=== PATIENT | male | born 1945 | race Asian ===

== ENCOUNTER 2017-09-25 03:35 | Emergency (ER) | payer OTHER ==
[2017-09-25 03:45] VITALS: BMI 33.5
[2017-09-25] MEDS ORDERED: ACETAMINOPHEN INJECTION 100 ML IVPB ONE (05:20)
[2017-09-25] MEDS ORDERED: SODIUM CHLORIDE 0.9% 500 ML INFUS.BAG IV ONE (05:28)
--- NOTE | 2017-09-25 05:30 | PDOC ---
History of Present Illness - General History Source: Patient, Family (Daughter) Exam Limitations: No Limitations - History of Present Illness Initial Comments: 09/25/17 06:02 The patient is a 71 year old male with a significant PMH of diabetes and HTN who presents to the emergency department with generalized weakness, dizziness, and non-productive cough for the past three days. The patient states the weakness is preventing him from getting out of bed. The patient reports he used the bathroom at 3AM this morning and fell on the ground afterwards prompting their visit to the ER. Patient states his last meal was spaghetti at 4PM yesterday and was intaking fluids normally. The patient denies taking Tylenol or Motrin. The patient denies getting a flu shot this year. The patient denies chest pain, shortness of breath, and headache. Denies chills, nausea, vomit, diarrhea and constipation. Denies dysuria, frequency, urgency and hematuria. The patient has a fever of 101 at presentation. Allergies: NKA Social history: No reported alcohol, cigarette, or drug use. PCP: Dr. Boyce <Charlene Larson - Last Filed: 09/25/17 06:02> <Janiya Crocker - Last Filed: 09/25/17 19:57> - General Chief Complaint: Weakness Stated Complaint: WEAKNESS Time Seen by Provider: 09/25/17 03:51 Past History <Charlene Larson - Last Filed: 09/25/17 06:02> - Suicide/Smoking/Psychosocial Hx Smoking History: Never smoked Have you smoked in the past 12 months: No Information on smoking cessation initiated: No Hx Alcohol Use: No Drug/Substance Use Hx: No <Janiya Crocker - Last Filed: 09/25/17 19:57> - Past Medical History Allergies/Adverse Reactions: Allergies Allergy/AdvReac Type Severity Reaction Status Date / Time No Known Allergies Allergy Verified 09/25/17 05:39 Home Medications: Ambulatory Orders Diltiazem [Cardizem -] 60 mg PO BID 09/25/17 Labetalol HCl [Normodyne -] 360 mg PO BID 09/25/17 Oseltamivir Phosphate [Tamiflu -] 75 mg PO BID #10 capsule 09/25/17 Sitagliptin Phos/Metformin HCl [Janumet 50-500 mg Tablet] 500 mg PO DAILY Review of Systems - Review of Systems Able to Perform ROS?: Yes Comments:: 09/25/17 06:04 GENERAL/CONSTITUTIONAL: (+) Generalized weakness. (+) Fever. No chills. HEAD, EYES, EARS, NOSE AND THROAT: No change in vision. No ear pain or discharge. No sore throat. CARDIOVASCULAR: No chest pain or shortness of breath. RESPIRATORY: (+) Cough. No wheezing, or hemoptysis. GASTROINTESTINAL: No nausea, vomiting, diarrhea or constipation. GENITOURINARY: No dysuria, frequency, or change in urination. MUSCULOSKELETAL: No joint or muscle swelling or pain. No neck or back pain. SKIN: No rash NEUROLOGIC: (+) Dizziness. No headache, loss of consciousness, or change in strength/sensation. ENDOCRINE: No increased thirst. No abnormal weight change. HEMATOLOGIC/LYMPHATIC: No anemia, easy bleeding, or history of blood clots. ALLERGIC/IMMUNOLOGIC: No hives or skin allergy. <Charlene Larson - Last Filed: 09/25/17 06:02> *Physical Exam - Vital Signs Last Vital Signs Temp Pulse Resp BP Pulse Ox 101.3 F H 90 18 156/90 97 09/25/17 03:43 09/25/17 03:43 09/25/17 03:43 09/25/17 03:43 09/25/17 03:43 - Physical Exam Comments: 09/25/17 06:05 GENERAL: (+) Burning up with fever. Awake, alert, and fully oriented, in no acute distress HEAD: No signs of trauma EYES: PERRLA, EOMI, sclera anicteric, conjunctiva clear ENT: (+) Dry mouth. Auricles normal inspection, hearing grossly normal, nares patent, oropharynx clear without exudates. NECK: Normal ROM, supple, no lymphadenopathy, JVD, or masses LUNGS: Breath sounds equal, clear to auscultation bilaterally. No wheezes, and no crackles HEART: Regular rate and rhythm, normal S1 and S2, no murmurs, rubs or gallops ABDOMEN: Soft, nontender, normoactive bowel sounds. No guarding, no rebound. No masses EXTREMITIES: Normal range of motion, no edema. No clubbing or cyanosis. No cords , erythema, or tenderness NEUROLOGICAL: Cranial nerves II through XII grossly intact. Normal speech, normal gait SKIN: Warm, Dry, normal turgor, no rashes or lesions noted. <Charlene Larson - Last Filed: 09/25/17 06:02> - Vital Signs Last Vital Signs Temp Pulse Resp BP Pulse Ox 101.3 F H 90 18 156/90 97 09/25/17 03:43 09/25/17 03:43 09/25/17 03:43 09/25/17 03:43 09/25/17 03:43 <Janiya Crocker - Last Filed: 09/25/17 19:57> ED Treatment Course - LABORATORY CBC & Chemistry Diagram: 09/25/17 05:19 09/25/17 05:19 - ADDITIONAL ORDERS Additional order review: 09/25/17 05:30 Influenza Types A,B Antigen (BRENT) - Preliminary Nasopharyngeal Swab - Preliminary 09/25/17 05:19 RBC 4.85 MCV 86.4 MCHC 33.4 RDW 13.9 MPV 8.5 Neutrophils % 82.4 Lymphocytes % 6.7 L Monocytes % 9.4 Eosinophils % 1.2 Basophils % 0.3 - Medications Given in the ED: ED Medications Discontinued Medications Generic Name Dose Route Start Last Admin Trade Name Freq PRN Reason Stop Dose Admin Sodium Chloride 1,000 ml 09/25/17 05:28 09/25/17 05:38 Normal Saline - IV 09/25/17 05:29 1,000 ml ONCE ONE Administration <Charlene Larson - Last Filed: 09/25/17 06:02> - LABORATORY CBC & Chemistry Diagram: 09/25/17 05:19 09/25/17 05:19 - RADIOLOGY Radiology Studies Ordered: Category Date Time Status CHEST PA & LAT [RAD] Stat Radiology 09/25/17 05:27 Ordered <Janiya Crocker - Last Filed: 09/25/17 19:57> Medical Decision Making - Medical Decision Making 09/25/17 19:57 Pt comes with fever and body aches. He has the flu. Labs otherwise normal. He appears improved with NSS and analgesics. Fever has come down and he will be sent home with tamiflu. <Janiya Crocker - Last Filed: 09/25/17 19:57> *DC/Admit/Observation/Transfer - Attestations Scribe Attestion: 09/25/17 06:07 Documentation prepared by Charlene Larson, acting as medical claims analyst for Janiya Crocker MD. <Charlene Larson - Last Filed: 09/25/17 06:02> - Discharge Dispostion Admit: No <Janiya Crocker - Last Filed: 09/25/17 19:57> Diagnosis at time of Disposition: Influenza A - Discharge Dispostion Disposition: HOME Condition at time of disposition: Improved - Prescriptions Prescriptions: Oseltamivir Phosphate [Tamiflu -] 75 mg PO BID #10 capsule - Referrals Referrals: Chaparro Boyce MD [Primary Care Provider] - - Patient Instructions Printed Discharge Instructions: Influenza - Post Discharge Activity
[2017-09-25 05:46] LABS: BASO % 0.3 % (0-2.0); EOS # 0.1 # (0-4.5); EOS % 1.2 % (0-4.5); LYMPH # 0.7 (8-40); MCH 28.9 pg (25.7-33.7); MCHC 33.4 g/dl (32.0-35.9); MEAN CELL VOLUME 86.4 fl (80-96); MEAN PLT VOLUME 8.5 fl (7.5-11.1); NEUT # 8.8 # (42.8-82.8); NEUT % 82.4 % (42.8-82.8); PLATELET COUNT 172 K/MM3 (134-434); RDW 13.9 % (11.9-15.9); WHITE BLOOD COUNT 10.7 K/mm3 (4.0-10.0)
[2017-09-25 05:52] LABS: URINE APPEARANCE CLEAR; URINE BILIRUBIN NEGATIVE (NEGATIVE); URINE BLOOD 1+ (NEGATIVE); URINE COLOR YELLOW; URINE GLUCOSE (UA) 2+ (NEGATIVE); URINE KETONE NEGATIVE (NEGATIVE); URINE LEUK ESTERASE NEGATIVE (NEGATIVE); URINE NITRITE NEGATIVE (NEGATIVE); URINE UROBILINOGEN NEGATIVE mg/dL (0.2-1.0)
[2017-09-25 06:03] LABS: INR 1.05 (0.82-1.09); PROTHROMBIN TIME (PATIENT) 11.9 SEC (9.98-11.88)
[2017-09-25 06:06] LABS: ALBUMIN 3.6 g/dl (3.4-5.0); ANION GAP 9 (8-16); BILIRUBIN,TOTAL 0.6 mg/dL (0.2-1.0); CALCIUM 8.8 mg/dL (8.5-10.1); CO2 24 mmol/L (21-32); CREATININE 1.3 mg/dL (0.7-1.3); GLUCOSE,RANDOM 171 mg/dL (74-106); SGOT/AST 26 U/L (15-37); SGPT/ALT 64 U/L (12-78); TOT PROT 7.2 g/dl (6.4-8.2)
[2017-09-25 06:09] LABS: ALK PHOS 64 U/L (45-117); CPK 229 IU/L (39-308); TROPONIN I < 0.02 ng/ml (0.00-0.05)
[2017-09-25] MEDS ORDERED: OSELTAMIVIR PHOSPHATE 75 MG CAPSULE PO ONE (06:11)
[2017-09-25 06:14] LABS: URINE PROTEIN 2+ (NEGATIVE)
[2017-09-25] MEDS ORDERED: ACETAMINOPHEN 1000 MG/100 ML VIAL (NON FORMULARY) IVPB ONE (06:15)
[2017-09-25] MEDS ORDERED: OSELTAMIVIR PHOSPHATE 75 MG CAPSULE ONE (06:16)
[2017-09-25] MEDS ORDERED: IBUPROFEN 600 MG TABLET (FP) PO ONE ×2 (06:20→06:22)
[2017-09-25 06:27] VITALS: TEMP 99.1
[2017-09-25 06:37] LABS: URINE HYALINE CAST 4 /lpf; URINE MUCUS RARE; URINE WBC 1 /hpf (3-5)
[2017-09-25 07:09] VITALS: BP 152/79; PULSE 80
[2017-09-25 14:28] LABS: URINE LEUK ESTERASE Negative (NEGATIVE)
--- NOTE | 2017-09-25 17:14 | EKG ---
Test Reason : Blood Pressure : / mmHG Vent. Rate : 084 BPM Atrial Rate : 084 BPM P-R Int : 174 ms QRS Dur : 104 ms QT Int : 364 ms P-R-T Axes : 076 061 042 degrees QTc Int : 430 ms NORMAL SINUS RHYTHM NORMAL ECG NO PREVIOUS ECGS AVAILABLE Confirmed by JOSÉ MIGUEL KIMBLE MD ([id number]) on 09/25/2017 5:13:51 PM Referred By: Confirmed By:JOSÉ MIGUEL KIMBLE MD
== END 2017-09-25 07:10 | disposition home or self-care (01) ==
LOC: JER 03:35
PROC: 3E033NZ Introduction of Analgesics, Hypnotics, Sedatives into Peripheral Vein, Percutaneous Approach (ICD-10-PCS; principal; 2017-09-25)
DX: J09.X2 Influenza due to identified novel influenza A virus with other respiratory manifestations (principal); I10 Essential (primary) hypertension; E11.9 Type 2 diabetes mellitus without complications; Z79.84 Long term (current) use of oral hypoglycemic drugs
CPT/HCPCS: 36415; 80053; 81003; 81015; 82550; 82553; 83605; 84484; 85025; 85610; 87040; 87086; 87804; 93005; 93010; 99283-25

== ENCOUNTER 2020-10-30 21:38 | Inpatient (IN) | payer OTHER ==
[2020-10-30] MEDS ORDERED: SODIUM CHLORIDE 2,449 ML IV ONE (22:24)
[2020-10-30] MEDS ORDERED: ONDANSETRON 4 MG/2 ML VIAL IVPUSH ONE (22:32)
[2020-10-30] MEDS ORDERED: ACETAMINOPHEN 1000 MG/100 ML VIAL (NON FORMULARY) IVPB ONE (22:59)
[2020-10-30] MEDS ORDERED: ONDANSETRON 4 MG/2 ML VIAL ONE (23:02)
[2020-10-30] MEDS ORDERED: ACETAMINOPHEN INJECTION 100 ML IVPB ONE (23:02)
[2020-10-30 23:03] LABS: BASO % 0.5 % (0-2.0); EOS % 0.4 % (0-4.5); HEMATOCRIT 37.9 % (35.4-49); MCH 30.2 pg (25.7-33.7); MCHC 34.3 g/dl (32.0-35.9); MEAN PLT VOLUME 8.2 fl (7.5-11.1); MONO % 8.1 % (3.8-10.2); PLATELET COUNT 145 K/MM3 (134-434); RDW 13.6 % (11.9-15.9)
[2020-10-30 23:12] LABS: INR 1.07 (0.83-1.09); PROTHROMBIN TIME (PATIENT) 13.1 SEC (9.7-13.0)
[2020-10-30 23:14] LABS: ACTIVATED PTT 30.8 SECONDS (25.2-36.5)
[2020-10-30 23:24] LABS: CHLORIDE 104 mmol/L (98-107); POTASSIUM 4.9 mmol/L (3.5-5.1); SODIUM 135 mmol/L (136-145)
[2020-10-30 23:26] LABS: ALBUMIN 3.5 g/dl (3.4-5.0); ANION GAP 10 MMOL/L (8-16); BLOOD UREA NITROGEN 24.6 mg/dL (7-18); CALCIUM 8.6 mg/dL (8.5-10.1); CO2 21 mmol/L (21-32); GLUCOSE,RANDOM 172 mg/dL (74-106)
[2020-10-30 23:29] LABS: CREATININE 1.6 mg/dL (0.55-1.3); SGPT/ALT 92 U/L (13-61)
[2020-10-30 23:30] LABS: LDH 483 U/L (87-246); SGOT/AST 72 U/L (15-37)
[2020-10-30 23:31] LABS: BILIRUBIN,TOTAL 0.6 mg/dL (0.2-1); TOT PROT 7.3 g/dl (6.4-8.2)
[2020-10-30 23:32] LABS: ALK PHOS 48 U/L (45-117)
[2020-10-30 23:46] LABS: VENOUS BASE EXCESS -3.5 mmol/L (-2-2); VENOUS O2 SATURATION 93.2 % (70-80); VENOUS PH 7.375 (7.310-7.410)
[2020-10-30 23:49] LABS: ANISOCYTOSIS 0; MACROCYTOSIS 1+
[2020-10-30 23:51] LABS: PLATELET ESTIMATE ADEQUATE
[2020-10-31 03:01] LABS: EPI CELLS 2 /uL (0-25.1); HYALINE CASTS 1 /uL (0-3.1); URINE APPEARANCE CLEAR; URINE BACTERIA 13 /uL (0-1359); URINE BILIRUBIN NEGATIVE (NEGATIVE); URINE COLOR YELLOW; URINE GLUCOSE (UA) TRACE (NEGATIVE); URINE KETONE NEGATIVE (NEGATIVE); URINE LEUK ESTERASE NEGATIVE (NEGATIVE); URINE NITRITE NEGATIVE (NEGATIVE); URINE PROTEIN 2+ (NEGATIVE); URINE RBC 5 /uL (0-23.9); URINE UROBILINOGEN 0.2 mg/dL (0.2-1.0); URINE WBC 2 /uL (0-25.8)
[2020-10-31] MEDS ORDERED: DEXAMETHASONE SOD PHOSPHATE 4 MG/1 ML VIAL IVPUSH ONE (03:25)
[2020-10-31] MEDS ORDERED: DEXAMETHASONE SOD PHOSPHATE 4 MG/1 ML VIAL ONE (03:35)
[2020-10-31] MEDS ORDERED: ACETAMINOPHEN 325 MG TABLET (FP) PO PRN (05:42)
[2020-10-31] MEDS: INSULIN SLIDING SCALE (NOVOLOG) 1 VIAL SQ SCH ×4 (08:05→22:27)
[2020-10-31] MEDS ORDERED: FAMOTIDINE 20 MG TABLET ONE (09:17)
[2020-10-31] MEDS ORDERED: LABETALOL HCL 100 MG TABLET (FP) ONE (09:17)
[2020-10-31] MEDS ORDERED: ASCORBIC ACID 500 MG TABLET (FP) ONE (09:17)
[2020-10-31] MEDS ORDERED: DEXAMETHASONE SOD PHOSPHATE 10 MG/1 ML VIAL ONE (09:17)
[2020-10-31] MEDS ORDERED: CEFTRIAXONE 1 GM/50 ML BAG ONE (09:18)
[2020-10-31] MEDS ORDERED: DOXYCYCLINE HYCLATE 100 MG VIAL ONE (09:18)
[2020-10-31] MEDS ORDERED: CHOLECALCIFEROL (VIT D3) 1,000 UNIT (25 MCG) TABLET ONE (09:18)
[2020-10-31] MEDS: DEXAMETHASONE SOD PHOSPHATE 4 MG/1 ML VIAL IVPUSH SCH (09:32)
[2020-10-31] MEDS: LABETALOL HCL 100 MG TABLET (FP) PO SCH ×2 (09:32→22:27)
[2020-10-31] MEDS: DOXYCYCLINE INJECTION 100 MG in DEXTROSE 5%-WATER - 100 ML IVPB SCH ×2 (09:32→22:33)
[2020-10-31] MEDS: FAMOTIDINE 20 MG TABLET PO SCH (09:32)
[2020-10-31] MEDS: ASCORBIC ACID 500 MG TABLET (FP) PO SCH (09:32)
[2020-10-31] MEDS: CHOLECALCIFEROL (VIT D3) 5000 UNITS (125 MCG) CAP PO SCH (09:33)
[2020-10-31] MEDS ORDERED: ATORVASTATIN CA 10 MG TABLET (FP) PO SCH (10:00)
[2020-10-31] MEDS ORDERED: dilTIAZem HCL 60 MG TABLET PO SCH (10:00)
[2020-10-31] MEDS ORDERED: ENOXAPARIN NA (PORCINE) 40 MG/0.4 ML DISP.SYRIN SQ SCH (10:00)
[2020-10-31 11:07] VITALS: BMI 28.0
[2020-10-31] MEDS: CEFTRIAXONE 1 GM in DEXTROSE 5%-WATER - 50 ML IVPB SCH (11:29)
[2020-10-31 12:35] LABS: HEMATOCRIT 38.6 % (35.4-49); HEMOGLOBIN 13.2 GM/dL (11.7-16.9); MCHC 34.2 g/dl (32.0-35.9); MEAN CELL VOLUME 87.7 fl (80-96); MEAN PLT VOLUME 8.3 fl (7.5-11.1); PLATELET COUNT 142 K/MM3 (134-434); RDW 14.2 % (11.9-15.9); WHITE BLOOD COUNT 6.8 K/mm3 (4.0-10.0)
[2020-10-31 13:07] LABS: POTASSIUM 4.5 mmol/L (3.5-5.1)
[2020-10-31 13:12] LABS: CALCIUM 8.5 mg/dL (8.5-10.1)
[2020-10-31 13:13] LABS: ALBUMIN 3.5 g/dl (3.4-5.0); BLOOD UREA NITROGEN 21.5 mg/dL (7-18); MAGNESIUM 1.5 mg/dL (1.8-2.4)
[2020-10-31 13:16] LABS: CREATININE 1.4 mg/dL (0.55-1.3); PHOSPHOROUS 3.4 mg/dL (2.5-4.9)
[2020-10-31 13:17] LABS: BILIRUBIN,TOTAL 1.5 mg/dL (0.2-1); TOT PROT 7.1 g/dl (6.4-8.2)
[2020-10-31 13:20] LABS: ERYTHROCYTE SEDIMENTATION RATE 33 mm/hr (0-20)
[2020-10-31] MEDS: HEPARIN NA (PORCINE) 5,000 UNITS/ML 1ML VIAL SQ SCH ×2 (13:27→22:27)
[2020-10-31] MEDS ORDERED: REMDESIVIR 200 MG in SODIUM CHLORIDE 210 ML IVPB ONE (14:00)
[2020-10-31] MEDS: ATORVASTATIN CA 10 MG TABLET (FP) PO SCH (22:27)
[2020-10-31] MEDS: BUDESONIDE/FORMETEROL FUMARATE 160/4.5 mcg INHALER IH SCH (22:28)
[2020-11-01] MEDS: HEPARIN NA (PORCINE) 5,000 UNITS/ML 1ML VIAL SQ SCH ×3 (07:11→21:55)
[2020-11-01] MEDS: INSULIN SLIDING SCALE (NOVOLOG) 1 VIAL SQ SCH ×4 (07:11→21:57)
[2020-11-01 08:37] LABS: BASO % 0.2 % (0-2.0); HEMATOCRIT 38.3 % (35.4-49); HEMOGLOBIN 13.3 GM/dL (11.7-16.9); LYMPH % 8.2 % (8-40); MCH 29.9 pg (25.7-33.7); MCHC 34.8 g/dl (32.0-35.9); MEAN PLT VOLUME 8.4 fl (7.5-11.1); MONO % 10.2 % (3.8-10.2); NEUT % 81.4 % (42.8-82.8); PLATELET COUNT 159 K/MM3 (134-434); RBC 4.46 M/mm3 (4.00-5.60); RDW 13.7 % (11.9-15.9); WHITE BLOOD COUNT 10.4 K/mm3 (4.0-10.0)
[2020-11-01] MEDS ORDERED: DEXTROSE 5%-WATER - 50 ML IVPB ONE (08:56)
[2020-11-01] MEDS ORDERED: cefTRIAXone SODIUM 1 GM VIAL ONE (08:56)
[2020-11-01] MEDS ORDERED: PT OWN MED DRAWER 7, Y5N ONE ×2 (08:56→21:49)
[2020-11-01 09:05] LABS: CALCIUM 8.6 mg/dL (8.5-10.1)
[2020-11-01 09:06] LABS: ALBUMIN 3.4 g/dl (3.4-5.0); BLOOD UREA NITROGEN 24.9 mg/dL (7-18); MAGNESIUM 1.6 mg/dL (1.8-2.4)
[2020-11-01 09:08] LABS: CREATININE 1.2 mg/dL (0.55-1.3)
[2020-11-01 09:09] LABS: PHOSPHOROUS 3.8 mg/dL (2.5-4.9)
[2020-11-01 09:10] LABS: BILIRUBIN,TOTAL 0.5 mg/dL (0.2-1); TOT PROT 6.9 g/dl (6.4-8.2)
[2020-11-01] MEDS: FAMOTIDINE 20 MG TABLET PO SCH (09:33)
[2020-11-01] MEDS: DEXAMETHASONE SOD PHOSPHATE 4 MG/1 ML VIAL IVPUSH SCH (09:34)
[2020-11-01] MEDS: BUDESONIDE/FORMETEROL FUMARATE 160/4.5 mcg INHALER IH SCH ×2 (09:34→21:58)
[2020-11-01] MEDS: ASCORBIC ACID 500 MG TABLET (FP) PO SCH (09:34)
[2020-11-01] MEDS: DOXYCYCLINE INJECTION 100 MG in DEXTROSE 5%-WATER - 100 ML IVPB SCH ×2 (09:34→21:59)
[2020-11-01] MEDS: LABETALOL HCL 100 MG TABLET (FP) PO SCH ×2 (09:34→21:55)
[2020-11-01] MEDS: CHOLECALCIFEROL (VIT D3) 5000 UNITS (125 MCG) CAP PO SCH (09:42)
[2020-11-01] MEDS: CEFTRIAXONE 1 GM in DEXTROSE 5%-WATER - 50 ML IVPB SCH (11:23)
[2020-11-01] MEDS: REMDESIVIR 100 MG in SODIUM CHLORIDE 230 ML IVPB SCH (14:32)
[2020-11-01] MEDS: ATORVASTATIN CA 10 MG TABLET (FP) PO SCH (21:55)
[2020-11-02] MEDS: HEPARIN NA (PORCINE) 5,000 UNITS/ML 1ML VIAL SQ SCH ×3 (06:07→21:21)
[2020-11-02] MEDS: INSULIN SLIDING SCALE (NOVOLOG) 1 VIAL SQ SCH ×4 (06:07→21:23)
[2020-11-02] MEDS ORDERED: PT OWN MED DRAWER 7, Y5N ONE (08:52)
[2020-11-02] MEDS ORDERED: cefTRIAXone SODIUM 1 GM VIAL ONE (08:52)
[2020-11-02] MEDS ORDERED: DEXTROSE 5%-WATER - 50 ML IVPB ONE (08:52)
[2020-11-02] MEDS: DEXAMETHASONE SOD PHOSPHATE 4 MG/1 ML VIAL IVPUSH SCH (09:39)
[2020-11-02] MEDS: LABETALOL HCL 100 MG TABLET (FP) PO SCH ×2 (09:39→21:21)
[2020-11-02] MEDS: ASCORBIC ACID 500 MG TABLET (FP) PO SCH (09:40)
[2020-11-02] MEDS: FAMOTIDINE 20 MG TABLET PO SCH (09:40)
[2020-11-02] MEDS: CEFTRIAXONE 1 GM in DEXTROSE 5%-WATER - 50 ML IVPB SCH (09:41)
[2020-11-02] MEDS: DOXYCYCLINE INJECTION 100 MG in DEXTROSE 5%-WATER - 100 ML IVPB SCH (09:41)
[2020-11-02] MEDS: BUDESONIDE/FORMETEROL FUMARATE 160/4.5 mcg INHALER IH SCH ×2 (09:41→21:25)
[2020-11-02] MEDS: CHOLECALCIFEROL (VIT D3) 5000 UNITS (125 MCG) CAP PO SCH (10:38)
[2020-11-02] MEDS: REMDESIVIR 100 MG in SODIUM CHLORIDE 230 ML IVPB SCH (15:57)
[2020-11-02] MEDS: ATORVASTATIN CA 10 MG TABLET (FP) PO SCH (21:21)
[2020-11-03 01:10] LABS: ARTERIAL BLD GAS O2 SATURATION 95.5 mmHg (95-98); ARTERIAL BLOOD GAS BASE EXCESS -5.4 mmol/L (-2-2); ARTERIAL BLOOD GAS PO2 75.3 mmHg (80-100)
[2020-11-03 01:13] LABS: ALLENS TEST POSITIVE
[2020-11-03] MEDS: INSULIN SLIDING SCALE (NOVOLOG) 1 VIAL SQ SCH ×4 (06:05→22:12)
[2020-11-03] MEDS: HEPARIN NA (PORCINE) 5,000 UNITS/ML 1ML VIAL SQ SCH ×3 (06:07→22:12)
[2020-11-03 09:41] LABS: POTASSIUM 4.4 mmol/L (3.5-5.1)
[2020-11-03 09:47] LABS: ALBUMIN 3.4 g/dl (3.4-5.0)
[2020-11-03 09:50] LABS: CREATININE 1.4 mg/dL (0.55-1.3)
[2020-11-03 09:52] LABS: BILIRUBIN,TOTAL 0.4 mg/dL (0.2-1); BLOOD UREA NITROGEN 32.4 mg/dL (7-18)
[2020-11-03 09:53] LABS: CALCIUM 8.9 mg/dL (8.5-10.1); TOT PROT 6.8 g/dl (6.4-8.2)
[2020-11-03] MEDS ORDERED: DEXTROSE 5%-WATER - 50 ML IVPB ONE (10:07)
[2020-11-03] MEDS ORDERED: cefTRIAXone SODIUM 1 GM VIAL ONE (10:07)
[2020-11-03] MEDS: DEXAMETHASONE SOD PHOSPHATE 4 MG/1 ML VIAL IVPUSH SCH (10:11)
[2020-11-03] MEDS: CEFTRIAXONE 1 GM in DEXTROSE 5%-WATER - 50 ML IVPB SCH (10:12)
[2020-11-03] MEDS: INSULIN (LEVEMIR) 100 UNITS/ML UNITS SQ SCH ×2 (10:12→22:13)
[2020-11-03] MEDS: FAMOTIDINE 20 MG TABLET PO SCH (10:13)
[2020-11-03] MEDS: ASCORBIC ACID 500 MG TABLET (FP) PO SCH (10:13)
[2020-11-03] MEDS: CHOLECALCIFEROL (VIT D3) 5000 UNITS (125 MCG) CAP PO SCH (10:14)
[2020-11-03] MEDS: LABETALOL HCL 100 MG TABLET (FP) PO SCH ×2 (10:18→22:11)
[2020-11-03] MEDS: BUDESONIDE/FORMETEROL FUMARATE 160/4.5 mcg INHALER IH SCH ×2 (10:19→22:12)
[2020-11-03] MEDS ORDERED: SODIUM CHLORIDE 1,000 ML IV SCH (11:00)
[2020-11-03] MEDS: REMDESIVIR 100 MG in SODIUM CHLORIDE 230 ML IVPB SCH (14:22)
[2020-11-03] MEDS: ATORVASTATIN CA 10 MG TABLET (FP) PO SCH (22:12)
[2020-11-04] MEDS: HEPARIN NA (PORCINE) 5,000 UNITS/ML 1ML VIAL SQ SCH ×3 (06:38→21:32)
[2020-11-04] MEDS: INSULIN (LEVEMIR) 100 UNITS/ML UNITS SQ SCH ×2 (06:41→21:34)
[2020-11-04] MEDS: INSULIN SLIDING SCALE (NOVOLOG) 1 VIAL SQ SCH ×4 (06:41→21:33)
[2020-11-04 10:17] LABS: HEMATOCRIT 41.3 % (35.4-49); HEMOGLOBIN 14.1 GM/dL (11.7-16.9); MCH 29.8 pg (25.7-33.7); MCHC 34.3 g/dl (32.0-35.9); MEAN PLT VOLUME 8.9 fl (7.5-11.1); PLATELET COUNT 157 K/MM3 (134-434); RBC 4.74 M/mm3 (4.00-5.60); RDW 13.5 % (11.9-15.9); WHITE BLOOD COUNT 7.6 K/mm3 (4.0-10.0)
[2020-11-04 10:18] LABS: BASO % 0.1 % (0-2.0); MONO % 13.4 % (3.8-10.2); NEUT % 74.5 % (42.8-82.8)
[2020-11-04] MEDS ORDERED: PT OWN MED DRAWER 7, Y5N ONE (10:23)
[2020-11-04] MEDS: DEXAMETHASONE SOD PHOSPHATE 4 MG/1 ML VIAL IVPUSH SCH (10:28)
[2020-11-04] MEDS: LABETALOL HCL 100 MG TABLET (FP) PO SCH ×2 (10:28→21:32)
[2020-11-04] MEDS: CHOLECALCIFEROL (VIT D3) 5000 UNITS (125 MCG) CAP PO SCH (10:29)
[2020-11-04] MEDS: FAMOTIDINE 20 MG TABLET PO SCH (10:29)
[2020-11-04] MEDS: ASCORBIC ACID 500 MG TABLET (FP) PO SCH (10:29)
[2020-11-04] MEDS: BUDESONIDE/FORMETEROL FUMARATE 160/4.5 mcg INHALER IH SCH ×2 (10:29→21:35)
[2020-11-04 10:39] LABS: POTASSIUM 4.3 mmol/L (3.5-5.1)
[2020-11-04 11:05] LABS: MAGNESIUM 2.1 mg/dL (1.8-2.4)
[2020-11-04 11:07] LABS: BLOOD UREA NITROGEN 35.4 mg/dL (7-18); CALCIUM 8.6 mg/dL (8.5-10.1)
[2020-11-04 11:08] LABS: CREATININE 1.4 mg/dL (0.55-1.3)
[2020-11-04 11:10] LABS: BILIRUBIN,TOTAL 0.8 mg/dL (0.2-1); TOT PROT 6.3 g/dl (6.4-8.2)
[2020-11-04] MEDS ORDERED: cefTRIAXone SODIUM 1 GM VIAL ONE (15:41)
[2020-11-04] MEDS ORDERED: DEXTROSE 5%-WATER - 50 ML IVPB ONE (15:42)
[2020-11-04] MEDS: CEFTRIAXONE 1 GM in DEXTROSE 5%-WATER - 50 ML IVPB SCH (15:43)
[2020-11-04] MEDS: REMDESIVIR 100 MG in SODIUM CHLORIDE 230 ML IVPB SCH (15:43)
[2020-11-04 17:36] LABS: EPI CELLS 3 /uL (0-25.1); HYALINE CASTS 1 /uL (0-3.1); PH,URINE 5.5 (5.0-8.0); URINE APPEARANCE CLEAR; URINE BACTERIA 7 /uL (0-1359); URINE BILIRUBIN NEGATIVE (NEGATIVE); URINE COLOR YELLOW; URINE GLUCOSE (UA) 3+ (NEGATIVE); URINE KETONE NEGATIVE (NEGATIVE); URINE LEUK ESTERASE NEGATIVE (NEGATIVE); URINE NITRITE NEGATIVE (NEGATIVE); URINE PROTEIN 3+ (NEGATIVE); URINE RBC 13 /uL (0-23.9); URINE UROBILINOGEN 0.2 mg/dL (0.2-1.0); URINE WBC 2 /uL (0-25.8)
[2020-11-04] MEDS: ATORVASTATIN CA 10 MG TABLET (FP) PO SCH (21:32)
[2020-11-05] MEDS: INSULIN SLIDING SCALE (NOVOLOG) 1 VIAL SQ SCH ×4 (06:21→22:40)
[2020-11-05] MEDS: INSULIN (LEVEMIR) 100 UNITS/ML UNITS SQ SCH ×2 (06:21→22:32)
[2020-11-05] MEDS: HEPARIN NA (PORCINE) 5,000 UNITS/ML 1ML VIAL SQ SCH ×3 (06:22→22:30)
[2020-11-05 08:42] LABS: BASO % 0.1 % (0-2.0); HEMATOCRIT 39.8 % (35.4-49); HEMOGLOBIN 13.6 GM/dL (11.7-16.9); LYMPH % 9.1 % (8-40); MCH 29.6 pg (25.7-33.7); MCHC 34.1 g/dl (32.0-35.9); MEAN CELL VOLUME 86.7 fl (80-96); MEAN PLT VOLUME 9.3 fl (7.5-11.1); MONO % 8.6 % (3.8-10.2); NEUT % 82.2 % (42.8-82.8); PLATELET COUNT 158 K/MM3 (134-434); RBC 4.59 M/mm3 (4.00-5.60); RDW 13.5 % (11.9-15.9); WHITE BLOOD COUNT 7.8 K/mm3 (4.0-10.0)
[2020-11-05 08:53] LABS: POTASSIUM 4.2 mmol/L (3.5-5.1)
[2020-11-05 09:03] LABS: CALCIUM 8.6 mg/dL (8.5-10.1)
[2020-11-05 09:04] LABS: ALBUMIN 2.9 g/dl (3.4-5.0); BLOOD UREA NITROGEN 33.4 mg/dL (7-18); MAGNESIUM 2.1 mg/dL (1.8-2.4)
[2020-11-05 09:07] LABS: CREATININE 1.2 mg/dL (0.55-1.3); PHOSPHOROUS 3.4 mg/dL (2.5-4.9)
[2020-11-05 09:09] LABS: BILIRUBIN,TOTAL 0.6 mg/dL (0.2-1)
[2020-11-05] MEDS ORDERED: cefTRIAXone SODIUM 1 GM VIAL ONE (09:21)
[2020-11-05] MEDS ORDERED: DEXTROSE 5%-WATER - 50 ML IVPB ONE (09:21)
[2020-11-05] MEDS: DEXAMETHASONE 4 MG TABLET (FP) PO SCH (09:46)
[2020-11-05] MEDS: LABETALOL HCL 100 MG TABLET (FP) PO SCH ×3 (09:46→22:49)
[2020-11-05] MEDS: FAMOTIDINE 20 MG TABLET PO SCH (09:46)
[2020-11-05] MEDS: ASCORBIC ACID 500 MG TABLET (FP) PO SCH (09:47)
[2020-11-05] MEDS: CEFTRIAXONE 1 GM in DEXTROSE 5%-WATER - 50 ML IVPB SCH (09:47)
[2020-11-05] MEDS: BUDESONIDE/FORMETEROL FUMARATE 160/4.5 mcg INHALER IH SCH ×2 (09:47→22:49)
[2020-11-05] MEDS: CHOLECALCIFEROL (VIT D3) 5000 UNITS (125 MCG) CAP PO SCH (09:56)
[2020-11-05] MEDS: Insulin (LOG) Aspart 100 UNITS/ML VIAL SQ SCH (18:58)
[2020-11-05] MEDS: ATORVASTATIN CA 10 MG TABLET (FP) PO SCH (22:33)
[2020-11-06] MEDS: HEPARIN NA (PORCINE) 5,000 UNITS/ML 1ML VIAL SQ SCH ×3 (06:12→21:04)
[2020-11-06] MEDS: INSULIN (LEVEMIR) 100 UNITS/ML UNITS SQ SCH ×2 (06:15→21:02)
[2020-11-06] MEDS: INSULIN SLIDING SCALE (NOVOLOG) 1 VIAL SQ SCH ×4 (06:17→21:02)
[2020-11-06] MEDS: Insulin (LOG) Aspart 100 UNITS/ML VIAL SQ SCH ×3 (06:19→17:45)
[2020-11-06] MEDS ORDERED: DEXTROSE 5%-WATER - 50 ML IVPB ONE (09:47)
[2020-11-06] MEDS ORDERED: cefTRIAXone SODIUM 1 GM VIAL ONE (09:47)
[2020-11-06] MEDS: DEXAMETHASONE 4 MG TABLET (FP) PO SCH (10:04)
[2020-11-06] MEDS: LABETALOL HCL 100 MG TABLET (FP) PO SCH ×2 (10:04→21:06)
[2020-11-06] MEDS: FAMOTIDINE 20 MG TABLET PO SCH (10:04)
[2020-11-06 10:05] LABS: BASO % 0.1 % (0-2.0); HEMATOCRIT 41.2 % (35.4-49); HEMOGLOBIN 14.2 GM/dL (11.7-16.9); LYMPH % 6.7 % (8-40); MCH 29.7 pg (25.7-33.7); MCHC 34.4 g/dl (32.0-35.9); MEAN CELL VOLUME 86.2 fl (80-96); MEAN PLT VOLUME 8.9 fl (7.5-11.1); MONO % 10.5 % (3.8-10.2); NEUT % 82.7 % (42.8-82.8); PLATELET COUNT 214 K/MM3 (134-434); RBC 4.78 M/mm3 (4.00-5.60); RDW 13.8 % (11.9-15.9); WHITE BLOOD COUNT 13.6 K/mm3 (4.0-10.0)
[2020-11-06] MEDS: CEFTRIAXONE 1 GM in DEXTROSE 5%-WATER - 50 ML IVPB SCH (10:05)
[2020-11-06] MEDS: ASCORBIC ACID 500 MG TABLET (FP) PO SCH (10:05)
[2020-11-06] MEDS: BUDESONIDE/FORMETEROL FUMARATE 160/4.5 mcg INHALER IH SCH ×2 (10:06→21:03)
[2020-11-06] MEDS: CHOLECALCIFEROL (VIT D3) 5000 UNITS (125 MCG) CAP PO SCH (10:06)
[2020-11-06 10:29] LABS: CHLORIDE 106 mmol/L (98-107); POTASSIUM 4.3 mmol/L (3.5-5.1); SODIUM 139 mmol/L (136-145)
[2020-11-06 10:43] LABS: CALCIUM 8.8 mg/dL (8.5-10.1)
[2020-11-06 10:44] LABS: ALBUMIN 2.9 g/dl (3.4-5.0); ANION GAP 9 MMOL/L (8-16); CO2 25 mmol/L (21-32); GLUCOSE,RANDOM 321 mg/dL (74-106); MAGNESIUM 2.1 mg/dL (1.8-2.4)
[2020-11-06 10:46] LABS: SGPT/ALT 57 U/L (13-61)
[2020-11-06 10:47] LABS: BILIRUBIN,TOTAL 0.4 mg/dL (0.2-1); CREATININE 1.4 mg/dL (0.55-1.3); SGOT/AST 26 U/L (15-37); TOT PROT 6.3 g/dl (6.4-8.2)
[2020-11-06 10:48] LABS: ALK PHOS 49 U/L (45-117)
[2020-11-06 11:11] LABS: ANISOCYTOSIS 1+; MACROCYTOSIS 0; PLATELET ESTIMATE NORMAL
[2020-11-06] MEDS ORDERED: INSULIN (NOVOLOG) ASPART 100 UNITS/ML 10ML VIAL ONE (11:24)
[2020-11-06 11:38] LABS: LDH 296 U/L (87-246)
[2020-11-06 20:54] VITALS: BP 142/86; PULSE 55; TEMP 98.5
[2020-11-06] MEDS: ATORVASTATIN CA 10 MG TABLET (FP) PO SCH (21:04)
== END 2020-11-06 21:18 | disposition home or self-care (01) | DRG 871 ==
LOC: JER 21:38 → JERBED 10-31 03:36 → J5S 10-31 11:04
PROVIDERS: ADMIT Internal Medicine; ATTEND Internal Medicine
PROC: XW033E5 Introduction of Remdesivir Anti-infective into Peripheral Vein, Percutaneous Approach, New Technology Group 5 (ICD-10-PCS; principal; 2020-10-31)
PROC: XW13325 Transfusion of Convalescent Plasma (Nonautologous) into Peripheral Vein, Percutaneous Approach, New Technology Group 5 (ICD-10-PCS; 2020-10-31)
DX: A41.9 Sepsis, unspecified organism (principal); U07.1 COVID-19; J12.82 Pneumonia due to coronavirus disease 2019; J96.01 Acute respiratory failure with hypoxia; N17.9 Acute kidney failure, unspecified; E87.2 Acidosis; E78.5 Hyperlipidemia, unspecified; R00.0 Tachycardia, unspecified; I51.7 Cardiomegaly; K76.0 Fatty (change of) liver, not elsewhere classified; E11.65 Type 2 diabetes mellitus with hyperglycemia; R74.01 Elevation of levels of liver transaminase levels
CPT/HCPCS: 36415; 36600; 71045-TC-FY; 76705-TC; 80053; 81003; 82010; 82565; 82728; 82803; 82962; 83605; 83615; 83735; 84100; 84300; 84484; 85025; 85027; 85379; 85610; 85651; 85730; 86140; 86769; 86850; 86900; 86901; 87040; 87086; 87186; 87899; 93005; 93010; 94761; 97116-GP; 97161-GP; 99285-25; C9399; C9803; J0131; J1644; U0003

== ENCOUNTER 2020-11-10 21:41 | Emergency (ER) | payer OTHER ==
[2020-11-10 21:55] VITALS: BP 115/68; PULSE 74; TEMP 99.1; BMI 31.6
[2020-11-10] MEDS ORDERED: ONDANSETRON 4 MG/2 ML VIAL IVPUSH ONE (22:36)
[2020-11-10] MEDS ORDERED: SODIUM CHLORIDE 0.9% 500 ML INFUS.BAG IV ONE (22:36)
[2020-11-10] MEDS ORDERED: ONDANSETRON 4 MG/2 ML VIAL ONE (22:42)
[2020-11-10 22:44] LABS: BASO % 0.8 % (0-2.0); EOS % 0.9 % (0-4.5); LYMPH % 4.8 % (8-40); MCH 29.8 pg (25.7-33.7); MCHC 33.5 g/dl (32.0-35.9); MEAN CELL VOLUME 89.2 fl (80-96); MEAN PLT VOLUME 9.1 fl (7.5-11.1); MONO % 5.9 % (3.8-10.2); NEUT % 87.6 % (42.8-82.8); RDW 14.1 % (11.9-15.9); WHITE BLOOD COUNT 13.3 K/mm3 (4.0-10.0)
[2020-11-10 22:58] LABS: INR 0.86 (0.83-1.09)
[2020-11-10 23:07] LABS: CHLORIDE 105 mmol/L (98-107); POTASSIUM 5.1 mmol/L (3.5-5.1); SODIUM 139 mmol/L (136-145)
[2020-11-10 23:10] LABS: ALBUMIN 2.8 g/dl (3.4-5.0); ANION GAP 9 MMOL/L (8-16); CALCIUM 8.7 mg/dL (8.5-10.1); CO2 25 mmol/L (21-32); GLUCOSE,RANDOM 180 mg/dL (74-106)
[2020-11-10 23:11] LABS: BLOOD UREA NITROGEN 28.1 mg/dL (7-18)
[2020-11-10 23:13] LABS: CREATININE 1.3 mg/dL (0.55-1.3); SGPT/ALT 89 U/L (13-61)
[2020-11-10 23:14] LABS: LDH 256 U/L (87-246); SGOT/AST 25 U/L (15-37)
[2020-11-10 23:15] LABS: BILIRUBIN,TOTAL 0.8 mg/dL (0.2-1); TOT PROT 5.9 g/dl (6.4-8.2)
[2020-11-10 23:16] LABS: ALK PHOS 48 U/L (45-117)
[2020-11-10 23:34] LABS: ANISOCYTOSIS 0; MACROCYTOSIS 0; PLATELET ESTIMATE DECREASED
[2020-11-10 23:45] LABS: PLATELET COUNT 130 K/MM3 (134-434)
[2020-11-11 00:34] LABS: BILIRUBIN,DIRECT 0.3 mg/dL (0.0-0.2)
[2020-11-11 03:10] LABS: URINE APPEARANCE CLEAR; URINE BILIRUBIN NEGATIVE (NEGATIVE); URINE COLOR YELLOW; URINE GLUCOSE (UA) 100 (NEGATIVE); URINE KETONE TRACE (NEGATIVE)
[2020-11-11 03:11] LABS: URINE LEUK ESTERASE NEGATIVE (NEGATIVE); URINE NITRITE NEGATIVE (NEGATIVE)
[2020-11-11 03:17] LABS: EPI CELLS 1.5 /uL (0-25.1); URINE BACTERIA 3.8 /uL (0-1359); URINE RBC 4.2 /uL (0-23.9); URINE WBC 2.8 /uL (0-25.8)
== END 2020-11-11 03:44 | disposition home or self-care (01) ==
LOC: JER 21:41
PROC: 3E033NZ Introduction of Analgesics, Hypnotics, Sedatives into Peripheral Vein, Percutaneous Approach (ICD-10-PCS; principal; 2020-11-10)
DX: R11.2 Nausea with vomiting, unspecified (principal); U07.1 COVID-19
CPT/HCPCS: 36415; 71045-TC-FY; 80053; 81003; 82010; 82248; 82550; 82728; 82962; 83605; 83615; 83690; 84484; 85025; 85610; 86140; 93005; 93010; 99285-25